=== PATIENT | male | born 1960 | race Caucasian/White ===

== ENCOUNTER 2023-01-10 03:12 | Emergency (ER) | payer OTHER ==
[2023-01-10 03:19] VITALS: BP 134/89; PULSE 84; RESP 18; TEMP 97.7; BMI 26.4
== END 2023-01-10 03:45 | disposition home or self-care (01) ==
LOC: FER 03:12
DX: I10 Essential (primary) hypertension (principal)
CPT/HCPCS: 93005; 99283-25